=== PATIENT | male | born 2000 | race Two or more races ===

== ENCOUNTER 2024-03-17 16:20 | Emergency (ER) | payer OTHER ==
[~2024-03-17] VITALS: Ht 180.3 cm; Wt 61.7 kg
[2024-03-17 16:34] VITALS: O2SAT 98
[2024-03-17] MEDS ORDERED: IBUP-1955 PO (16:40)
[2024-03-17] MEDS ORDERED: ACET1TAB23 PO (18:24)
== END 2024-03-17 18:38 | disposition home or self-care (01) ==
LOC: ER 16:32
DX: S20.229A Contusion of unspecified back wall of thorax, initial encounter (principal); S40.011A Contusion of right shoulder, initial encounter; Z98.890 Other specified postprocedural states; Z79.899 Other long term (current) drug therapy; W18.39XA Other fall on same level, initial encounter; Y93.89 Activity, other specified; Y92.89 Other specified places as the place of occurrence of the external cause; Y99.8 Other external cause status
CPT/HCPCS: 72072; A4606; A4663